=== PATIENT | male | born 1990 | race Caucasian/White ===

== ENCOUNTER 2021-08-25 21:38 | Emergency (ER) | payer MEDICAID, OTHER, SELFPAY ==
[2021-08-25 21:52] VITALS: BP 149/76; PULSE 89; RESP 20; TEMP 37.7; O2SAT 97; BMI 23.9
== END 2021-08-25 23:25 | disposition left against medical advice (07) ==
DX: H92.03 Otalgia, bilateral (principal)
CPT/HCPCS: 99281